=== PATIENT | female | born 1960 | race Two or more races ===

== ENCOUNTER 2021-07-07 08:10 | Emergency (ER) | payer SELFPAY ==
[~2021-07-07] VITALS: Ht 149.9 cm; Wt 68.5 kg
[2021-07-07 08:23] VITALS: BP 100/60
[2021-07-07] MEDS ORDERED: IBUPROFEN 400 MG TABLET. PO ONE (08:45)
[2021-07-07] MEDS ORDERED: AMOXICILLIN/K CLAV 875/125MG TABLET. PO ONE (08:45)
[2021-07-07] MEDS ORDERED: DIPH,PERTUSS(ACELL),TET VAC/PF 0.5 ML SYRINGE. VAX IM ONE (08:45)
[2021-07-07] MEDS ORDERED: ACETAMINOPHEN 500 MG TABLET PO ONE (08:45)
--- NOTE | 2021-07-07 09:00 | EKG ---
[facility] [address] [place] [address] Test Date: 2021-07-07 Test Time: 08:50:40 Pat Name: ZEINAB WISDOM Department: Room: Gender: F Ophthalmic Assistant: : [id number] Requested By: AYLEEN FLANAGAN Order Number: [id number] Reading MD: Suleman Bateman Measurements Intervals [place] Rate: 70 P: 31 CA: 164 QRS: 58 QRSD: 74 T: 37 QT: 416 QTc: 452 Interpretive Statements SINUS RHYTHM Electronically Signed On 07-07-2021 12:30:10 INTERACTIVE DEVELOPER by Suleman Bateman
--- NOTE | 2021-07-07 09:01 | PHYS DOC ---
Past Medical History Past Surgical History: Knee Replacement Smoking Status: Never Smoker Alcohol Use: None Adult General Chief Complaint Chief Complaint: MULTIPLE COMPLAINTS HPI HPI The patient is a 61-year-old female who is otherwise healthy and takes no chronic daily medications. She presents for evaluation of a punctate rooster bite to her right hand in the webspace between the first and second digits. This is hemostatic. Patient states that a rooster at home bit her and she then went inside to wash her hand off and while she was at the sink washing her hand began to feel lightheaded and then fainted. She reports a long history, ever since childhood, of fainting in response to emotional or physical pain, stress or distress. She did strike her head when she fell but states it does not hurt very much. There is a mild right lateral upper facial contusion with a superficial abrasion versus laceration seen. Patient denies hitting or hurting any other part of her body during the episode. No shortness of breath or chest discomfort prior to, during or after the fainting episode in question. Tetanus not up-to-date. No therapy for symptoms prior to arrival. Review of Systems Review of Systems A 12 point review of systems was completed and was negative except where noted in HPI above. Current Medications Current Medications Current Medications Medications (Trade) Dose Ordered Sig/Carl Start Time Stop Time Status Last Admin Dose Admin Acetaminophen (Tylenol) 1,000 mg 1X ONCE 07/07/21 08:45 07/07/21 08:47 DC 07/07/21 09:38 1,000 MG Amoxicillin/ Clavulanate Potassium (Augmentin 875/ 125mg) 1 tab 1X ONCE 07/07/21 08:45 07/07/21 08:47 DC 07/07/21 09:38 1 TAB Diphtheria/ Tetanus/Acell Pertussis (ADACEL TDap SYRINGE) 0.5 ml ONCE ONCE 07/07/21 08:45 07/07/21 08:47 DC 07/07/21 09:40 0.5 ML Ibuprofen (Motrin) 800 mg 1X ONCE 07/07/21 08:45 07/07/21 08:47 DC 07/07/21 09:38 800 MG Allergies Allergies Allergies Coded Allergies Type Severity Reaction Last Updated Verified No Known Drug Allergies 07/07/21 No Physical Exam Physical Exam Older female appearing nontoxic and in no acute distress. Head is normocephalic and with mild right facial contusion/abrasion lateral to the orbit. Neck is supple and nontender. Oropharynx is moist. Lungs are clear to auscultation at all stations. There is a normal S1 and S2 without rubs or gallops and capillary refill is appropriate, less than 2 seconds globally. Abdomen is soft, nontender and nondistended. Skin is warm and dry without cyanosis, clubbing or edema. Psychiatrically, the patient demonstrates appropriate mood and affect and is alert. Evaluation of the right upper extremity is remarkable for a punctate superficial apparent bite site to the webspace between the thumb and second fingers of the right hand. This is h emostatic. Right upper extremity is neurovascularly intact distally. Current Patient Data Vital Signs Vital Signs Date Time Temp Pulse Resp B/P (MAP) Pulse Ox O2 Delivery O2 Flow Rate FiO2 07/07/21 09:42 81 18 104/60 (75) 97 Room Air 07/07/21 08:23 97.9 97.9 EKG EKG Sinus rhythm, rate 70, no acute ST elevation or depression, MS 164, QRS 74, QTc 452, EP interpretation. Nonischemic tracing, intervals appropriate. Radiology/Procedures Radiology/Procedures Thai syncope risk score -3 given predisposition to vasovagal symptoms and probability of vasovagal episode prior to arrival. Will defer laboratory evaluation given normal vital signs, exam and EKG. Will check head CT, hand films, update tetanus and give a dose of Augmentin. No rabies immunoprophylaxis or vaccination necessary for provoked chicken bite. [] 1018: Work-up unremarkable and reassuring. Will discharge home with Tylenol for discomfort, Augmentin course and close follow-up with primary care. She understands that if she feels worse instead of better or develops other new symptoms of concern that she will need to return to the emergency department immediately for reevaluation. All questions were answered Course & Med Decision Making Course & Med Decision Making Pertinent Labs and Imaging studies reviewed. (See chart for details) [] Dragon Disclaimer Dragon Disclaimer This electronic medical record was generated, in whole or in part, using a voice recognition dictation system. Departure Departure Impression: Primary Impression: Animal bite Additional Impression: Vasovagal syncope Disposition: HOME / SELF CARE / HOMELESS Condition: GOOD Patient Instructions: Animal Bite, Syncope Additional Instructions: Follow-up with your primary care doctor in the office in the next 2 to 4 days for a reevaluation of your symptoms and to discussion of next best steps in care. Drink plenty of fluids and get plenty of rest. You may take a 500 mg extra strength Tylenol pill every 6 hours as needed for discomfort. Take the Augmentin antibiotic twice a day for the next 10 days to prevent infection. Return to the emergency department right away for worsening symptoms of any kind or with any other new symptoms of concern. Scripts Acetaminophen (ACETAMINOPHEN) 500 Mg Tablet 1 TAB PO PRN Q6HRS PRN for pain or fever for 15 Days, #60 TAB 0 Refills Prov: AYLEEN FLANAGAN MD 07/07/21 Amoxicillin/Potassium Clav (AUGMENTIN 875-125 TABLET) 1 Each Tablet 1 TAB PO Q12HR for 10 Days, #20 TAB Prov: AYLEEN FLANAGAN MD 07/07/21 Problem Qualifiers AYLEEN FLANAGAN MD Jul 07, 2021 09:01
--- NOTE | 2021-07-07 09:09 | RAD ---
XR HAND_RIGHT 2 VIEWS DATE: 07/07/2021 8:46 AM INDICATION: Pain, fall, head injury, syncope COMPARISON: None. FINDINGS: Bones: There is no evidence of acute fracture or dislocation. Joints: Moderate degenerative changes of the DIP joints. Miscellaneous: None. IMPRESSION: No evidence of acute fracture. Electronically signed by: Ronald Qiu MD (07/07/2021 9:07 AM) [id number]
--- NOTE | 2021-07-07 09:12 | RAD ---
CT HEAD/BRAIN WO Date: 07/07/2021 8:50 AM Clinical Indication: fall, syncope, head injury Comparison: None. Technique: 5 mm axial tomographic images were obtained of the head without contrast. These were view ed on brain and bone windows. One or more of the following dose reduction techniques were utilized: A utomated exposure control (AEC), Adjustment of mA and/or kV according to patient size, Use of iterati ve reconstruction technique such as ASiR, CT scan done according to ALARA and image gently/image tirado ly Findings: The brain parenchyma is normal in attenuation. No intra- or extra-axial mass or fluid collection. No acute hemorrhage. The ventricles are normal in size, shape, and morphology. The howell-white matter radha ction is normal. The subarachnoid cisterns are patent. The visualized paranasal sinuses are normal. The visualized portions of the orbits and globes are no rmal. The mastoid air cells are clear. The sales representative girls' apparel topogram shows no lytic lesion or fracture. Impression: No acute intracranial process. Electronically signed by: Ronald Qiu MD (07/07/2021 9:09 AM) [id number]
[2021-07-07] MEDS ORDERED: AMOX1TAB61 PO (10:23)
[2021-07-07] MEDS ORDERED: ACET500T68 PO (10:23)
== END 2021-07-07 10:48 ==
LOC: ER 08:10
DX: S00.83XA Contusion of other part of head, initial encounter (principal); S61.451A Open bite of right hand, initial encounter; R55 Syncope and collapse; W61.91XA Bitten by other birds, initial encounter; Y93.89 Activity, other specified; Y92.89 Other specified places as the place of occurrence of the external cause; Y99.8 Other external cause status
CPT/HCPCS: 70450; 73120; 90471; 90715; 93005; 99284-25